=== PATIENT | male | born 1960 | race Caucasian/White ===

== ENCOUNTER 2023-12-08 16:57 | Emergency (ER) | payer BC, SELFPAY ==
[2023-12-08 17:04] VITALS: BP 158/105
[2023-12-08 17:29] VITALS: BP 145/92
[2023-12-08 17:36] VITALS: BMI 28.4
[2023-12-08 18:00] VITALS: BP 137/94
[2023-12-08 18:06] LABS: % Basophils 0.5 % (0-2); % Eosinophils 6.6 % (0-6); % Immature Granulocytes 0.2 % (0-0.5); % Lymphocytes 32.4 % (20.5-51.1); % Neutrophils 52.3 % (42.2-75.2); Absolute Eosinophils 0.4 10^3/uL (0-0.7); Absolute Lymphocytes 2.2 10^3/uL (1.2-3.4); Absolute Monocytes 0.5 10^3/uL (0.1-0.6); Absolute Neutrophils 3.5 10^3/uL (1.4-6.5); Hemoglobin 14.4 g/dL (13.0-18.0); Mean Corp Hgb Conc. 35.1 g/dL (33.0-37.0); Mean Corpuscular Hgb 31.2 pg (27.0-31.0); Mean Corpuscular Volume 88.9 fL (80.0-94.0); Mean Platelet Volume 9.1 fL (7.4-10.4); Nucleated Red Blood Cells % 0 % (-); Platelet Count 199 10^3/uL (130-400); Red Blood Cell Count 4.61 10^6/uL (4.70-6.10); Red Cell Dist. Width 12.4 % (11.5-14.5); White Blood Cell Count 6.6 10^3/uL (4.8-10.8)
--- NOTE | 2023-12-08 18:14 | ED.GENMED ---
History of Present Illness
General
Chief Complaint: Breathing Problem
Time Seen by Provider: 12/08/23 18:01
Travel History
Have you had any contact with someone who has COVID-19?: No
Do you have any symptoms of coronavirus? Fever > 100 degrees, chills, cough, shortness of breath, sore throat, loss of taste or smell, muscle aches, or headache?: No
History of Present Illness
History of Present Illness:
63-year-old male with no significant past medical history presents to the emergency department for evaluation of persistent cough, wheezing, and shortness of breath over the past 4 to 5 weeks. Has been treated with multiple courses of antibiotics,
oral steroids and inhaled steroids with marginal benefit. He states that while on oral steroids he did seem to improve for a brief period of time before worsening again. Denies any URI symptoms, fever, chills, or night sweats. Denies any weight
loss or chest pain. No leg swelling or calf cramping. Non-smoker. 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
Past History
Past History
ED Past Medical History: None
ED Past Surgical History: None
Social History
Tobacco: Non-smoker
Review of Systems
Review of Systems
Allergies reviewed?: Yes
All Other Systems: ROS reviewed and negative except as documented in HPI and ROS
Phy Exam
Physical Exam
Physical Exam:
GEN: Well appearing, NAD, WDWN
Eyes: PERRLA, EOMs intact, no scleral icterus
HENT: NCAT, oral mucosa moist, no JVD
Lungs: Slightly tachypneic with no accessory muscle use, coarse wheezes heard throughout all lung frost with prolonged aspiratory phase
Cardiac: RRR, no M/R/G, no peripheral edema. Radial pulses 2+ bilat
Neuro: AO x 3, no focal deficits to BUE/BLE, normal sensation throughout
MSK: No gross deformity or ecchymosis.
Skin: No rashes, petechiae. Normal color, no pallor or jaundice.
Psych: Calm, cooperative, proper hygiene
Scores
Heart Failure Risk
Heart Failure Risk Score: Not Applicable
Course
Orders/Labs/Results
Orders:
Orders
12/08/23 17:09
Chest [CR Chest - 2 Views ] Urgent
Comment:
Reason For Exam: cough
12/08/23 17:58
Complete Blood Count/With Diff Urgent
Comprehensive Metabolic Panel Urgent
Pro-BNP [NT-proBNP] Urgent
Troponin I Urgent
12/08/23 18:40
CT Chest W/o Iv Contrast Urgent
Comment:
Reason For Exam: SOB/wheezing x 1 month, prior asbestos exposure
Ipratropium/Albuterol Sulfate [Duoneb] 3 ml INH R NOW STA
12/08/23 19:28
Prednisone [Deltasone] 60 mg PO NOW STA
Abnormal Lab Results
12/08/23
17:58
RBC 4.61 L 10^6/uL
(4.70-6.10)
MCH 31.2 H pg
(27.0-31.0)
Eosinophils % 6.6 H %
(0-6)
BUN 26 H mg/dl
(9-20)
Glucose 111 H mg/dl
(70-99)
AST 81 H U/L
(17-59)
12/08/23 17:58
12/08/23 17:58
Vital Signs
Initial and Last Documented VS:
Initial Vital Signs
Temp Pulse Resp BP Pulse Ox
97.9 F 94 20 158/105 94
12/08/23 17:04 12/08/23 17:04 12/08/23 17:04 12/08/23 17:04 12/08/23 17:04
Last Documented Vital Signs
Temp Pulse Resp BP Pulse Ox
97.9 F 75 21 137/94 92
12/08/23 17:04 12/08/23 18:45 12/08/23 18:45 12/08/23 18:00 12/08/23 18:45
MDM/Problems Addressed
MDM/Problems Addressed:
Patient has had prolonged symptoms for more than a month with some transient improvement on steroids. His presentation is not consistent with infectious etiology such as pneumonia particular given reassuring imaging. He has no chest pain given the
presence of wheezing I have a low suspicion for pulmonary embolism. CT scan has some suggestion of pneumonitis which could be inflammatory versus occupational exposure. Will start the patient on a prolonged course of steroids and recommend
outpatient pulmonology follow-up. He is clinically stable and does not require hospitalization at this point
*Critical Care Note
Total Time (30-74mins, 75-104mins- exclusive of procedures): Not Applicable
ED Attending Note
-
Portions of this chart may have been created with voice recognition software.� Occasional wrong word or��sound alike� substitutions may have occurred due to the inherent limitations of voice recognition software.
Discharge Plan
Departure
Patient Disposition: Home (Routine Discharge)
Date of Disposition: 12/08/23
Time of Disposition: 19:28
Patient with high blood pressure during this ER visit?: Yes
Discharge Problem:
Pneumonitis
Instructions: Pneumonitis (DC)
Prescriptions:
New
prednisone 10 mg tablet
10 mg PO DIRECTED Qty: 37 0RF
Rx Instructions:
Once daily as follows: 60, 50, 50, 40, 40, 30, 30, 20, 20, 10, 10, 5, 5
No Action
ascorbic acid (vitamin C) [Vitamin C] 1,000 MG tablet
1,000 mg PO DAILY
ginseng [Gin-Zing] 100 MG capsule
100 mg PO DAILY
ibuprofen [Advil Liqui-Gel] 200 MG capsule
400 mg PO Q6H PRN (Reason: lower back pain)
docosahexaenoic acid-epa 1 CAP capsule
1 cap PO DAILY
vitamin E (dl, acetate) 400 UNITS capsule
400 units PO DAILY
Multivitamin
1 tab PO DAILY
Referrals:
Max Fairchild MD [Active] -
Fam Clay MD [Family Provider] -
Interventions
Interventions:
*Risk Screen - Suicide Last Done: 12/08/23 17:36
*General Assessment Last Done: 12/08/23 17:36
*Neglect/Abuse Screening Last Done: 12/08/23 17:36
ED- Fall Risk Assessment Last Done: 12/08/23 17:36
*ED COVID-19 Vaccine History Last Done: 12/08/23 17:36
*Nursing Disposition Last Done: 12/08/23 19:50
ED- Cardiac Assessment Last Done: 12/08/23 17:36
ED- Pulmonary Assessment Last Done: 12/08/23 17:36
Discharge Date and Time
Discharge Date/Time: 12/08/23 19:51
[2023-12-08 18:18] LABS: ALT (SGPT) 25 U/L (0-50); AST (SGOT) 81 U/L (17-59); Albumin 4.1 g/dl (3.5-5.0); Alkaline Phosphatase 110 U/L (38-126); Blood Urea Nitrogen 26 mg/dl (9-20); Calcium 9.6 mg/dl (8.4-10.2); Carbon Dioxide 22 mmol/L (22-30); Chloride 103 mmol/L (98-107); Estimated Creatinine Clearance 77 ml/min; Glucose 111 mg/dl (70-99); Potassium 4.2 mmol/L (3.5-5.1); Sodium 138 mmol/L (135-145); Total Bilirubin 0.6 mg/dl (0.2-1.3); eGFR > 60.00
[2023-12-08 18:29] LABS: NT-proBNP 85.7 pg/ml; Troponin I < 0.012 ng/ml
[2023-12-08] MEDS: DUONEB 3 ML INH (18:46)
[2023-12-08] MEDS: DELTASONE 60 MG PO (19:38)
== END 2023-12-08 19:51 | disposition home or self-care (01) ==
LOC: EMR 16:57
PROVIDERS: EMERGENCY PHYSICIAN Emergency Medicine; FAMILY PHYSICIAN Family Medicine
DX: J18.9 Pneumonia, unspecified organism (principal); R03.0 Elevated blood-pressure reading, without diagnosis of hypertension
CPT/HCPCS: 99285; 94640; 71046; 71250; 80053; 83880; 84484; 85025; 93005

== ENCOUNTER → 2024-01-17 12:21 | Outpatient (REF) | payer BC, SELFPAY | LOC: HWRAD 12:21 | PROVIDERS: ATTENDING PHYSICIAN Internal Medicine Critical Care Medicine; FAMILY PHYSICIAN Family Medicine | DX: R06.00 Dyspnea, unspecified (principal); R91.1 Solitary pulmonary nodule; R91.8 Other nonspecific abnormal finding of lung field | CPT/HCPCS: 71250 ==

== ENCOUNTER → 2024-05-06 14:30 | Outpatient (REF) | payer BC, SELFPAY | LOC: RCS 14:30 | PROVIDERS: ATTENDING PHYSICIAN Pain Medicine Interventional Pain Medicine; FAMILY PHYSICIAN Family Medicine | DX: Z01.818 Encounter for other preprocedural examination (principal) | CPT/HCPCS: 93005 ==

== ENCOUNTER 2024-06-06 02:20 | Inpatient (IN) | payer BC, SELFPAY ==
[2024-06-05 18:01] VITALS: BP 138/97
[2024-06-05 18:33] LABS: ALT (SGPT) 21 U/L (0-50); AST (SGOT) 77 U/L (17-59); Albumin 4.3 g/dl (3.5-5.0); Alkaline Phosphatase 108 U/L (38-126); Blood Urea Nitrogen 15 mg/dl (9-20); Calcium 9.5 mg/dl (8.4-10.2); Carbon Dioxide 22 mmol/L (22-30); Chloride 100 mmol/L (98-107); Glucose 105 mg/dl (70-99); Potassium 4.5 mmol/L (3.5-5.1); Sodium 133 mmol/L (135-145); Total Bilirubin 0.6 mg/dl (0.2-1.3); Total Protein 7.8 g/dl (6.3-8.2); eGFR > 60.00
[2024-06-05 18:34] LABS: COVID-19 Antigen Negative (Negative)
[2024-06-05 18:36] VITALS: BP 133/86
[2024-06-05 18:36] LABS: Hematocrit 40.6 % (39.0-52.0); Hemoglobin 14.5 g/dL (13.0-18.0); Mean Corp Hgb Conc. 35.7 g/dL (33.0-37.0); Mean Corpuscular Hgb 31.4 pg (27.0-31.0); Mean Corpuscular Volume 87.9 fL (80.0-94.0); Mean Platelet Volume 9.7 fL (7.4-10.4); Platelet Count 206 10^3/uL (130-400); Red Blood Cell Count 4.62 10^6/uL (4.70-6.10); Red Cell Dist. Width 12.8 % (11.5-14.5); White Blood Cell Count 6.2 10^3/uL (4.8-10.8)
[2024-06-05 18:42] VITALS: BMI 26.5
--- NOTE | 2024-06-05 18:45 | EDRN ---
Received patient on stretcher. Patient stated that he had COVID 2 weeks ago and 3 days ago developed a fever with nausea and diarrhea. Saw his PCP yesterday and was given a prescription for Zofran. Patient stated that he has been taking extra
strength Tylenol every 6 hours that usually lasts about 4 hours. Took Zofran around 3pm. Stated that it helped so he could take the Tylenol. Decreased appetite.
[2024-06-05 19:00] VITALS: BP 146/99
--- NOTE | 2024-06-05 19:05 | ED.GENMED ---
History of Present Illness
General
Chief Complaint: Fever
Source: patient and spouse
Exam Limitations: none
Time Seen by Provider: 06/05/24 18:30
History of Present Illness
History of Present Illness:
This is a 64 year old male that comes in with c/o fever and body aches. States that he started on Sunday with fever and body aches. States that he has had nausea and diarrhea with a headache. States that he went to the PCP yesterday and at the
doctors office his temp was 103.4. Patient also vomited 3 times while there. States that he was given Zofran and is taking Tylenol 2 tabs every 6 hours. States that he has no appetite. States that his headache is across his forehead and that he has
had chills with his fever. States that he has used Imodium to help with the diarrhea. Denies any chest pain, SOB, abd pain, dizziness, urinary burning.
Past History
Past History
ED Past Medical History: COPD (questionable since COVID) and HTN
ED Past Surgical History: None, Orthopedic (Bilateral rotator cuff, right elbow surgery , Laminectomy, Neck surgery nerves cut) and Other (Inguinal hernia, )
Social History
Tobacco: Former smoker
Alcohol: Occasional
Personal:
Living: with family
Review of Systems
Review of Systems
All Other Systems: ROS reviewed and negative except as documented in HPI and ROS
Constitutional: Reports fever and chills
EENT: Reports no symptoms; Denies sore throat
Respiratory: Reports no symptoms; Denies cough or trouble breathing
Cardiac: Reports no symptoms; Denies chest pain
ABD/GI: Reports abdominal pain (sore), nausea, vomiting and diarrhea
: Reports no symptoms; Denies dysuria, frequency or urgency
Musculoskeletal: Reports other (Body aches)
Skin: Reports no symptoms
Neurological: Reports headache; Denies dizzy
Psychiatric: Reports no symptoms
Phy Exam
General Physical Exam
General Presentation: no apparent distress
General age: appears stated age
General Skin: warm and dry
General Habitus: normal
General Mental: alert
General Hydration: dry mucous membranes
ENT Exam
ENT Exam: TM's normal, pharynx normal and neck supple
Eye Exam
Eye Exam: EOMI
Cardiovascular Exam
Cardiovascular Exam: regular rate/rhythm, no edema, no murmur and normal peripheral pulses
Pulmonary Exam
Pulmonary Exam: no respiratory distress, chest non tender, no rhonchi, no wheezing, no cough and other (crackles right base)
Gastrointestinal Exam
Gastrointestinal Exam: normal bowel sounds, soft, no organomegaly, no pulsatile mass, non distended and tender (Generalized tenderness with palpation)
Musculoskeletal Exam
Musculoskeletal Exam: full ROM and no edema
Skin Exam
Skin Exam: normal color, warm/dry, no rash and no petechia
Psychiatric Exam
Psychiatric Exam: normal mood/affect
Course
Orders/Labs/Results
Orders:
Orders
06/05/24 18:12
CMP [Comprehensive Metabolic Panel] Urgent
COVID-19 Antigen Urgent
Source: Nasal Swab
Complete Blood Count/With Diff Urgent
INF RAPID [Influenza A+B Rapid Molecular] Urgent
FARZANEH Source: Nasal Swab
Specimen Description:
06/05/24 18:48
0.9% Sodium Chloride 1000 ml [Nss] 1,000 ml IV BOLUS
Ketorolac [Toradol] 30 mg IV NOW STA
CR Chest - 2 Views Urgent
Comment:
Reason For Exam: fever
06/05/24 19:17
Lactic Acid Urgent
06/05/24 21:18
CT Abd/pelvis W Iv Cont Urgent
Comment:
Reason For Exam: abd pain, fever
Diphenhydramine [Benadryl] 25 mg IV NOW STA
Prochlorperazine [Compazine] 5 mg IV NOW STA
06/05/24 21:45
Acetaminophen [Tylenol] 1,000 mg PO NOW STA
06/05/24 23:55
Urinalysis Reflex To Culture Urgent
Date Specimen was Collected: 06/05/24
Time Specimen was Collected: 23:52
Abnormal Lab Results
06/05/24 06/05/24
18:12 23:55
RBC 4.62 L 10^6/uL
(4.70-6.10)
MCH 31.4 H pg
(27.0-31.0)
Absolute Lymphs (auto) 0.9 L 10^3/uL
(1.2-3.4)
Lymphocytes % 15.2 L %
(20.5-51.1)
Sodium 133 L mmol/L
(135-145)
Glucose 105 H mg/dl
(70-99)
AST 77 H U/L
(17-59)
Urine Ketones 3+ A
(Negative)
Urine Bilirubin 1+ A
(Negative)
06/05/24 18:12
06/05/24 18:12
Sodium slightly low. Glucose nonfasting. AST elevation. COVID and Influenza Negative. Urine negative for infection.
Vital Signs
Initial and Last Documented VS:
Initial Vital Signs
Temp Pulse Resp BP Pulse Ox
98.8 F 121 16 138/97 95
06/05/24 18:01 06/05/24 18:01 06/05/24 18:01 06/05/24 18:01 06/05/24 18:01
Last Documented Vital Signs
Temp Pulse Resp BP Pulse Ox
99.8 F 94 20 147/98 96
06/05/24 21:45 06/05/24 20:00 06/05/24 20:00 06/05/24 21:11 06/05/24 21:15
MDM/Problems Addressed
Differential Diagnosis Includes:
PNA, Viral syndrome
MDM/Problems Addressed:
This is a 64 year old male that comes in with c/o fever, vomiting and diarrhea. States that this started on Sunday and he was seen by the PCP yesterday. Told that this is most likely viral. Patient was given Zofran and told to take Tylenol every 6
hours.
will check labs and get Chest x-ray
back into see patient. Explained that there could be a small right lower lobe Pneumonia. When listening to patient lungs there is crackling noted. Patient states that nothing he has been given has helped. States that he feels 'like Crap'. Explained
that this could all be viral. Will get CT for his abd discomfort. Will further medicate for his nausea.
Into see patient. Explained that the CT shows that he has Ileitis. This is most likely infectious as noted by patient fever and nausea. Will start on IV antibiotics and admit. Hospitalist notified.
Chronic conditions affecting care:
NA
Acute Exacerbation and/or Progression of Chronic Illness:
NA
*Radiology
Radiology exam reviewed: preliminary read by ED provider (Chest- questionable right lower lobe Pneumonia (CT r/o Pneumonia, Atelectasis)), radiology read reviewed (CT night hawk-Mild segmental thickening of the disstal and terminal ileum with mild
associated mesenteric edema and trace free intraperitoneal fluid. Distal ileum is dilated, measuring up to 3.3cm in diameter. Luminal fluid in the right colon. Findings would suggest ileitis with segmental adynamic), all reviewed NAD by ED Provider
( CT cont-ileus. (no clear signs of mechanical obstruction), Infection and/or inflammatory disease are primary considerations. Ischemia considered less likely. Suspect secondary dilation of the appendix which measures 8-9mm and is fluid-filled. No
periappendiceal inflammatory changes at this time.) and other (CT cont- Suggest follow-up as clnically warranted. Small fat-containing periumbilical hernia. Atherosclerotic calcifications abdominal aorta and iliac vessels. Degenerative changes in
the spine, pelvis and hips. Previous Left L5 laminectomy)
*Pulse Oximetry
Patient hypoxic: no
*EKG
Interpreted by ED Provider?: NA
Rate: EKG- N/A
*International Accountant Interpretation
Rate: tachycardiac
Heart Rate: 111
Rhythm: sinus tachycardia
*Critical Care Note
Total Time (30-74mins, 75-104mins- exclusive of procedures): Not Applicable
ED Attending Note
-
Portions of this chart may have been created with voice recognition software.� Occasional wrong word or��sound alike� substitutions may have occurred due to the inherent limitations of voice recognition software.
Discharge Plan
Departure
Patient Disposition: Admit
Date of Disposition: 06/06/24
Time of Disposition: 00:26
Admit to: Med/Surg
Presentation/result/management discussed w/ accepting MD/DO: Hospitalist
Patient with high blood pressure during this ER visit?: Yes
Condition: Good
Covid-19: Negative COVID-19
Discharge Problem:
Fever, Ileitis
Prescriptions:
No Action
ascorbic acid (vitamin C) [Vitamin C] 1,000 MG tablet
1,000 mg PO DAILY
ginseng [Gin-Zing] 100 MG capsule
100 mg PO DAILY
ibuprofen [Advil Liqui-Gel] 200 MG capsule
400 mg PO Q6H PRN (Reason: lower back pain)
docosahexaenoic acid-epa 1 CAP capsule
1 cap PO DAILY
vitamin E (dl, acetate) 400 UNITS capsule
400 units PO DAILY
Multivitamin
1 tab PO DAILY
prednisone 10 mg tablet
10 mg PO DIRECTED Qty: 37 0RF
Rx Instructions:
Once daily as follows: 60, 50, 50, 40, 40, 30, 30, 20, 20, 10, 10, 5, 5
Referrals:
NONE,* [Active] -
Interventions
Interventions:
*Risk Screen - Suicide Last Done: 06/05/24 18:42
*General Assessment Last Done: 06/05/24 18:42
*Neglect/Abuse Screening Last Done: 06/05/24 18:42
ED- Fall Risk Assessment Last Done: 06/05/24 18:42
*ED COVID-19 Vaccine History Last Done: 06/05/24 18:42
ED- Neurological Assessment Last Done: 06/05/24 18:42
ED-Skin Assessment Last Done: 06/05/24 18:42
Discharge Date and Time
Print Language: OCCITAN
[2024-06-05] MEDS: TORADOL 30 MG IV (19:13)
[2024-06-05] MEDS: NSS 1000 IV (19:16)
[2024-06-05 19:17] LABS: % Basophils 0.5 % (0-2); % Eosinophils 0.2 % (0-6); % Immature Granulocytes 0.2 % (0-0.5); % Lymphocytes 15.2 % (20.5-51.1); % Monocytes 9.2 % (1.7-9.3); % Neutrophils 74.7 % (42.2-75.2); Absolute Lymphocytes 0.9 10^3/uL (1.2-3.4); Absolute Monocytes 0.6 10^3/uL (0.1-0.6); Absolute Neutrophils 4.6 10^3/uL (1.4-6.5); Nucleated Red Blood Cells % 0.3 % (-)
[2024-06-05 19:39] LABS: Lactic Acid 0.7 mmol/L (0.7-2.0)
[2024-06-05 20:00] VITALS: BP 141/86
[2024-06-05 21:11] VITALS: BP 147/98
[2024-06-05] MEDS: BENADRYL 25 MG IV (21:31)
[2024-06-05] MEDS: COMPAZINE 5 MG IV (21:32)
[2024-06-05] MEDS: TYLENOL 1000 MG PO (21:49)
[2024-06-06] VITALS (9 sets, daily range): BP systolic 139–157; BP diastolic 85–98; BMI 27.1
[2024-06-06 00:01] LABS: Urine Albumin Trace (Neg - Trace); Urine Bilirubin 1+ (Negative); Urine Character Clear (Clear); Urine Color Yellow; Urine Glucose Negative (Negative); Urine Ketone 3+ (Negative); Urine Leukocyte Negative (Negative); Urine Nitrite Negative (Negative); Urine Occult Blood Negative (Negative); Urine Specific Gravity 1.015 (<1.030); Urine Urobilinogen 1+ (Neg - 1+)
[2024-06-06] MEDS: ZOSYN 50 IV ×3 (00:36→11:08)
--- NOTE | 2024-06-06 01:37 | HPS.HSE ---
Family Physician
-
Family Physician: Fam Clay
Chief Complaint
-
hi grade fever
History of Present Illness
HPI
64M HX COPD ( questionable since COVID) and HTN seen at ER for evalaution of Fever
- Hi grade fever 103.4 at PCP office. Afebrile at ER
- Chills with fever
- Associated w frontal COTE and arthralgia
- Nausea and NB watery diarrhea
- Poor appetite
- No recent travel
- No recent ABx
- No contact exposures
ROS:
Denies any chest pain, SOB, abd pain, dizziness, urinary burning.
Medical History
Past Medical History
Past Medical History: Reports Other
Additional Past Medical History:
COPD (questionable since COVID) and HTN
Past Surgical History: Reports Other
Additional Past Surgical History:
Bilateral rotator cuff, right elbow surgery , Laminectomy, Neck surgery nerves cut) and Other (Inguinal hernia, )
Social History
Tobacco: Former Smoker
Alcohol: Occasional
Personal:
Living: With Family
Family History
Family History: Not pertinent
Allergies / Home Medications
Allergies reflects when Allergies were last updated in [facility].
Home Medications with original date entered in [facility]
Allergy/Medication List:
Allergies
Allergy/AdvReac Type Severity Reaction Status Date / Time
No Known Drug Allergies Allergy - Verified 12/08/23 17:03
cats Allergy stuffy Uncoded 12/08/23 17:03
nose and
watery eyes
hayfever, dust, pollen Allergy stuffy Uncoded 12/08/23 17:03
nose and
watery eyes
Home Medications
Multivitamin 1 tab PO DAILY 11/24/13
ascorbic acid (vitamin C) 1,000 mg tablet (Vitamin C) 1,000 mg PO DAILY 11/24/13
docosahexaenoic acid (dha)-epa 120 mg-180 mg capsule 1 cap PO DAILY 11/24/13
ginseng 100 mg capsule (Gin-Zing) 100 mg PO DAILY 11/24/13
ibuprofen 200 mg capsule (Advil Liqui-Gel) 400 mg PO Q6H PRN lower back pain 11/24/13
vitamin E (dl, acetate) 180 mg (400 unit) capsule 400 units PO DAILY 11/24/13
prednisone 10 mg tablet 10 mg PO DIRECTED #37 tabs 12/08/23
Review of Systems
-
Constitutional: Reports Fever and Chills
EENT: Reports No Symptoms
Respiratory: Reports No Symptoms
Cardiac: Reports No Symptoms
Abdomen/GI: Reports Nausea and Diarrhea
: Reports No Symptoms
Musculoskeletal: Reports No Symptoms
Skin: Reports No Symptoms
Neurological: Reports No Symptoms
Endocrine: Reports No Symptoms
Hematologic/Lymphatic: Reports No Symptoms
Psych: Reports No Symptoms
Physical Exam
Vital Signs
Vital Signs
Temp Pulse Resp BP Pulse Ox
98.7 F 97 24 148/96 96
06/06/24 00:05 06/06/24 01:15 06/06/24 01:15 06/06/24 01:00 06/06/24 01:15
Physical Exam
General: Well Developed, Well Nourished and No Apparent Distress
HEENT: NormoCephalic, Moist mucous membranes and Atraumatic
Respiratory: Clear
Cardiac: S1/S2 and Regular Rhythm; No Murmur or Rub
GI: Soft, Non Tender, Non Distended and Normal Bowel Sounds; No Organomegaly
Rectal: Deferred by Provider
Musculoskeletal: No Clubbing, No Cyanosis and No Edema
Skin: No Rash
Neuro: Nonfocal/grossly intact
Laboratory Results
-
06/05/24 18:12
06/05/24 18:12
Laboratory Results
Lactic Acid 0.7 mmol/L (0.7-2.0) 06/05/24 19:17
Total Bilirubin 0.6 mg/dl (0.2-1.3) 06/05/24 18:12
AST 77 U/L (17-59) H 06/05/24 18:12
ALT 21 U/L (0-50) 06/05/24 18:12
Alkaline Phosphatase 108 U/L (38-126) 06/05/24 18:12
Data Reviewed
-
Diagnostic Radiology: Report Reviewed by me
CT Scan: Report Reviewed by me
Medical Tests (Nuc Med, Echo, EKG etc): Report Reviewed by me
Lab Data: Labs Reviewed by me
Impression/Plan
-
Reviewed VS: Afebrile, unremarkable HR hi 90s, normotensive, RR low 20s,
Data
WCC 6.2
Na 133
Cr 1.2
eGFR > 60
AST 77
NEG Covid
CXR
Small focus of linear atelectasis within the lateral left lower lung.
CT AP with contrast
- findings suggest ileitis with segmental adynamic illeus Infective vs inflammatory
- no clear mechanical obstruction
- secondary dilation of appendix
No prior hospitalist admission:
ASSESSMENT & PLAN
Pending Rx reconciliation
Sepsis associated with acute ileitis suspect infective > Inflammatory
Associated segmental ileus
Associated NB watery diarrhea
- No recent travel
- No recent ABx
- No contact exposures
- stool Cx, stool C Diff
- Clear and IVF
- empiric Zosyn
- anti emetics
- Held NSAIDs
- GI consult
Borderline Essential HTN
- Pending Rx reconciliation ? on losartan
DVT Px: SCD
Code: Full
IP TLM
[2024-06-06] MEDS: NSS 1000 IV ×2 (03:33→14:48)
[2024-06-06] MEDS: TYLENOL 650 MG PO ×4 (03:37→19:52)
--- NOTE | 2024-06-06 03:41 | PTCARENOTE ---
Pt received from ED at 0327. Pt walked into room. Pt AAOX3, able to make needs known, and VSS. Will continue with current plan of care.
[2024-06-06 09:24] LABS: Hematocrit 36.3 % (39.0-52.0); Hemoglobin 12.7 g/dL (13.0-18.0); Mean Corpuscular Hgb 31.1 pg (27.0-31.0); Mean Corpuscular Volume 88.8 fL (80.0-94.0); Mean Platelet Volume 9.7 fL (7.4-10.4); Platelet Count 165 10^3/uL (130-400); Red Blood Cell Count 4.09 10^6/uL (4.70-6.10); Red Cell Dist. Width 12.7 % (11.5-14.5); White Blood Cell Count 3.9 10^3/uL (4.8-10.8)
[2024-06-06 09:59] LABS: ALT (SGPT) 19 U/L (0-50); AST (SGOT) 76 U/L (17-59); Albumin 3.8 g/dl (3.5-5.0); Alkaline Phosphatase 85 U/L (38-126); Blood Urea Nitrogen 16 mg/dl (9-20); Carbon Dioxide 21 mmol/L (22-30); Chloride 100 mmol/L (98-107); Estimated Creatinine Clearance 69 ml/min; Glucose 83 mg/dl (70-99); Potassium 4.3 mmol/L (3.5-5.1); Sodium 134 mmol/L (135-145); Total Bilirubin 0.6 mg/dl (0.2-1.3); eGFR > 60.00
--- NOTE | 2024-06-06 10:07 | W.PN.HOSP.TC ---
Today's Communication/Plan
-
see outlined plan
Assessment / Plan
Assessment / Plan
Assessment:
Ileitis
- CT: Mild thickening of several distal small bowel loops including the terminal ileum with mild to moderate fluid distention of the distal small bowel as well as the proximal colon. Mild mesenteric stranding also noted. Findings suggestive of a
non-specific enteritis, likely infectious or inflammatory in nature. The appendix is also secondarily filled with fluid measuring 11 mm. No periappendiceal inflammatory changes.
- patient admits to eating raw oysters
- will check stool studies, norovirus, O&P, and Vibrio if lab available
- continue empiric Zosyn pending cultures
- clears
- pain control, anti-emetics
- GI Consulted
Hyponatremia - improving
hx of Essential HTN
- resume Valsartan, 40mg dose until home dose clarified
Hx of Asthma
- on Breo
DVT ppx: SCDs
Code: Full
Non-billable note, H&P entered same calendar date)
Anticipated Discharge: 24 - 48 hours
Subjective/Interval History
-
Date of Service: June 06, 2024
reports some chills, had a loose stool this AM
admits to eating raw oysters a few days ago
Objective Data
-
Labs:
Laboratory Results
06/06/24
09:01
WBC 3.9 L
Hgb 12.7 L
Hct 36.3 L
Plt Count 165
Sodium 134 L
Potassium 4.3
Chloride 100
Carbon Dioxide 21 L
BUN 16
Creatinine 1.1
Glucose 83
Calcium 9.0
Total Bilirubin 0.6
AST 76 H
ALT 19
Alkaline Phosphatase 85
Vital Signs:
Vital Signs
Temp Pulse Resp BP Pulse Ox
98 F 97 16 139/91 93
06/06/24 07:30 06/06/24 07:30 06/06/24 07:30 06/06/24 07:30 06/06/24 07:30
I&O
06/05/24 06/06/24 06/07/24
06:59 06:59 06:59
Intake Total 290 / 290
Balance 290 / 290
Physical Exam
-
General: No Apparent Distress
HEENT: Normocephalic and Atraumatic
Respiratory: Negative Wheezes
Cardiac: Regular Rhythm and S1/S2
GI: Nontender and Distended
Genito-urinary: No Costovertebral Tender
Musculoskeletal: No Edema
Neuro: AO x 3
Psych: Calm
Data Reviewed
-
Total Time Spent with Patient (in minutes): 42
Labs: Labs Reviewed by me
[2024-06-06] MEDS: SYMBICORT 160/4.5 MCG INHALER INH (10:40)
[2024-06-06] MEDS: DIOVAN 40 MG PO (11:08)
--- NOTE | 2024-06-06 11:16 | CON.GI ---
Addendum entered and electronically signed by Martina Poe MD 06/06/24 16:20:
I saw and examined the patient.
The METAL FURNITURE ASSEMBLY SUPERVISOR's note was reviewed and I agree with the note.
Nausea/vomiting/diarrhea/fever--CT imaging showing enteritis. Likely infectious gastroenteritis vs food poisoning.
History of collagenous colitis-asymptomatic in the past. Last colonoscopy 2021-details below
plan
Follow-up stool studies for infection
Adequate hydration
Continue antibiotics started by medical team
Will follow
Original Note:
Consultation
-
Date/Time Consultation Requested: 06/06/24 0308
Date/Time Consultation Performed: 06/06/24 1050
Requesting Provider: Dr. Ngo
Performing Provider: Dr. Poe/DEYANIRA Barragan
Reason for Consultation: ileitis
Medical History
Chief Complaint / HPI
Chief Complaint: F,C,N/V,D
History of Present Illness:
64-year-old male with past medical history of hypertension, questionable COPD after having COVID and collagenous colitis currently quiescent who presents to the emergency room with 4-day history of fevers, chills, myalgias, nausea, vomiting and
diarrhea. We are asked to evaluate for ileitis. The patient states that on Sunday evening he went out with family to [employer] [place] he had raw oysters. He states he only ate 2 of them. Other family members had oysters as well. No
other family members are sick. He states that on Sunday he had acute on onset of generalized feeling unwell. He states he felt somewhat feverish with some mild aches. As the day progressed this got significantly worse. By that evening he states
he could not get comfortable. He was moaning out with discomfort, aches and pains, he does know that he had fevers and chills although did not take his temperature. By Sunday he started having profuse brown diarrhea with associated nausea and
vomiting. He went to his PCP and also vomited while there. His temperature was 103.4. He was given a prescription of Zofran and told that he should probably go to the emergency room. The patient decided to try to stay home. However things got
worse and he did not feel better. The patient was taking Tylenol 2 tablets every 6 hours. He had generalized headache. He tried to use Imodium without any relief. The patient denies any melena, hematochezia, dysphagia or odynophagia. He denies
any chest pain or shortness of breath. He denies any sore throat, no lesions. The patient denies any recent travel. No sick contacts. Patient continues to have loose stools here although he states these are getting somewhat thicker. He has had
no further vomiting. He is tolerating some sips of clears.
Past Medical History
Past Medical History: COPD, HTN and Other (Collagenous colitis)
Past Surgical History: Orthopedic (Bilateral rotator cuff, right elbow surgery, laminectomy, neck surgery) and Other (Inguinal hernia repair)
Social History
Tobacco: Non-Smoker
Alcohol: Occasional ('2-3 cocktails a week')
Drug: None
Personal:
Living: With Family
Employment: Employed
Family History
Family History: Other (No family history of gastrointestinal malignancy or IBD)
Allergies / Home Medications
Allergy/AdvReac Type Severity Reaction Status Date / Time
No Known Drug Allergies Allergy - Verified 12/08/23 17:03
cats Allergy stuffy Uncoded 12/08/23 17:03
nose and
watery eyes
hayfever, dust, pollen Allergy stuffy Uncoded 12/08/23 17:03
nose and
watery eyes
�Medication �Instructions �Recorded
Multivitamin 1 tab PO DAILY 11/24/13
ibuprofen 200 mg capsule (Advil 400 mg PO Q6H PRN lower back pain 11/24/13
Liqui-Gel)
aspirin 81 mg tablet 81 mg PO DAILY 06/06/24
fluticasone furoate 200 1 ea inhalation DAILY 06/06/24
mcg-vilanterol 25 mcg/dose
inhalation powder (Breo Ellipta)
valsartan PO DAILY 06/06/24
Review of Systems
-
All other systems: A 12 pt ROS was Negative except as stated above in HPI
Vital Signs
Temp Pulse Resp BP Pulse Ox
98 F 97 16 139/91 93
06/06/24 07:30 06/06/24 11:08 06/06/24 07:30 06/06/24 11:08 06/06/24 07:30
Physical Exam
Exam
General: Other (Patient appears unwell)
HEENT: Anicteric
Respiratory: Clear (Anterior)
Cardiac: Regular Rhythm (Tachycardic, 109)
GI: Soft, Non Tender, Normal Bowel Sounds and Distended (Mildly distended)
Musculoskeletal: No Edema
Skin: Warm and Dry
Neuro: AO x 3
Psych: Calm
Results
WBC 3.9 10^3/uL (4.8-10.8) L 06/06/24 09:01
Hgb 12.7 g/dL (13.0-18.0) L 06/06/24 09:01
Hct 36.3 % (39.0-52.0) L 06/06/24 09:01
MCV 88.8 fL (80.0-94.0) 06/06/24 09:01
Plt Count 165 10^3/uL (130-400) 06/06/24 09:01
Absolute Neuts (auto) 4.6 10^3/uL (1.4-6.5) 06/05/24 18:12
Sodium 134 mmol/L (135-145) L 06/06/24 09:01
Potassium 4.3 mmol/L (3.5-5.1) 06/06/24 09:01
Chloride 100 mmol/L (98-107) 06/06/24 09:01
Carbon Dioxide 21 mmol/L (22-30) L 06/06/24 09:
BUN 16 mg/dl (9-20) 06/06/24 09:
Creatinine 1.1 mg/dL (0.7-1.3) 06/06/24 09:
Calcium 9.0 mg/dl (8.4-10.2) 06/06/24 09:
Total Bilirubin 0.6 mg/dl (0.2-1.3) 06/06/24 09:
AST 76 U/L (17-59) H 06/06/24 09:
ALT 19 U/L (0-50) 06/06/24 09:
Alkaline Phosphatase 85 U/L (38-126) 06/06/24 09:
Diagnostic Image Results:
CT abdomen and pelvis with IV contrast:
IMPRESSION:
1. Mild thickening of several distal small bowel loops including the terminal ileum with mild to moderate fluid distention of the distal small bowel as well as the proximal colon. Mild mesenteric stranding also noted. Findings suggestive of a
non-specific enteritis, likely infectious or inflammatory in nature. The appendix is also secondarily filled with fluid measuring 11 mm. No periappendiceal inflammatory changes.
2. Additional findings above.
A preliminary interpretation was provided by [facility] teleradiology service. The above report agrees with the initial interpretation.
Electronically signed by Rick Baker MD, 06/06/2024 8:55 AM
Chest x-ray:
IMPRESSION:
Small focus of linear atelectasis within the lateral left lower lung.
Prior GI Procedures:
EGD: Never
Colonoscopy: 01/12/2022 ([facility]): - One 1 mm polyp in the sigmoid colon, removed with a
cold biopsy forceps. Resected and retrieved.
- The examination was otherwise normal.
- Biopsies were taken with a cold forceps from the
ascending colon, transverse colon, descending colon,
sigmoid colon and rectum for evaluation of microscopic
colitis. Pathology: Collagenous colitis. Colon polyp sessile serrated polyp.
Colonoscopy 08/29/2021 ([facility])
- One 3 mm polyp in the sigmoid colon, removed with a
cold snare. Resected and retrieved.
- The examination was otherwise normal. Pathology hyperplastic polyp.
Colonoscopy 11/15/2009: The entire examined portion of the colon appeared normal.
Assessment / Plan
-
64-year-old male with past medical history of hypertension, questionable COPD after having COVID and collagenous colitis currently quiescent who presents to the emergency room with 4-day history of fevers, chills, myalgias, nausea, vomiting and
diarrhea. We are asked to evaluate for ileitis.Patient with acute onset of fevers up to 103.4, chills, myalgias and arthralgias associated with nausea, vomiting and diarrhea starting on Sunday. Patient did have raw oysters on Sunday evening. No
sick contacts, no recent travel. COVID is negative. C. difficile is negative. Stool studies pending. Ova and parasite pending. Norovirus pending. WBC 3.9 down from 6.2, hemoglobin 12.7 down from 14.5, platelets 165 down from 206. Sodium 134,
potassium 4.3, CO2 21, BUN 16, creatinine 1.1, glucose 83, lactic acid 0.7, calcium 9.0, total bilirubin 0.6, AST 76, ALT 19, alk phos 85. CT of the abdomen and pelvis with IV contrast shows mild segmental thickening involving several loops of the
distal ileum as well as the terminal ileum with mild adjacent mesenteric edema. Several loops of distal small bowel are also fluid-filled measuring up to 3.1 cm with moderate amount of fluid within the proximal colon.
Impression:
Enteritis-> with Nausea, Vomiting and Diarrhea, recent ingestion of raw oysters. Concerns for vibrio.
Fevers
Myalgias
Tachycardia
Mildly elevated AST
Other Dx:
Hx collagenous colitis, prior quiescent with formed stool daily.
HTN
COPD vs Asthma post COVID
Plan:
-Await stool culture, O&P, Giardia, norovirus.
-Added on Vibrio, will need new specimen to send out.
-Patient was initially on Zosyn and has been changed to Levaquin and Flagyl.
-Trend CBC, CMP in am
-Ok for clear liquid diet
-Further recommendations to be forthcoming
-
-
Thank you for consultation and allowing me to participate in the patient's care. Please call the production checker GI physician during the after hours with any questions or concerns.
--- NOTE | 2024-06-06 11:56 | W.PN.UPDATE ---
Update Note
Progress Note Update
I personally performed a history and physical exam of the patient and discussed management with the resident. I reviewed the resident's seperately documented note and agree with the documented findings and plan of care HPI/CC with the following
exceptions/corrections:
CC:fever
HPI: Mr Hardin is a 64 year old male with history of collagenous colitis (quiescent), treated hep C (90s, first interferon, then interferon with ribaviron, with SVR, no known cirrhosis) who presented to today for four days of fever, chill,
nausea, vomiting, diarrhea and myalgias. No known history of liver disease, does drink 2-3 cocktails per week, no known immunosuppression. Of note the day prior to onset he had 2 raw oysters, other family members also ate the raw oysters none are
sick. The next dayhe had malaise, feverish and myalgias which progressed through the day to severe abdominal pain. He progressed to nausea, vomiting, profuse diarrhea, T of 103.4. Saw PCP and given script for zofran and referred to the ER but he
decided to stay home. Progressed with headache. Self administered imodium with worsening symptoms. No blood in the stool. No sick contacts or recent travel. Vomiting resolved. He presented here.
Since arrival here he has been afebrile, bp stable wbc initially 6.2 now 3.9, hgb 14.5, plt 206, no L shift, there was mild lymphopenia, cr 1.1, na 134, lactic acid 0.7, t bili 0.6, ast 76, alt 19, alk phos 85, ua no pyuria but 3+ ketones, covid ag
neg, 06/05 CT a/p with IV contrast: terminal ileitis, 06/05 CXR: atelectasis, stool for c diff giardia/crypto negatie, stool salmonella, campy, shiga toxin pending, was on zosyn I have recommended a switch to levaquin and metronidazole, ID is
consulted for assistance with management.
Past Medical History
Past Medical History: COPD, HTN and Other (Collagenous colitis)
Past Surgical History: Orthopedic (Bilateral rotator cuff, right elbow surgery, laminectomy, neck surgery) and Other (Inguinal hernia repair)
Social History
Tobacco: Non-Smoker
Alcohol: Occasional ('2-3 cocktails a week')
Drug: None
Family History
Family History: No family history of gastrointestinal malignancy or IBD
Allergies / Home Medications
Allergy/AdvReac Type Severity Reaction Status Date / Time
No Known Drug Allergies Allergy - Verified 12/08/23 17:03
cats Allergy stuffy Uncoded 12/08/23 17:03
nose and
watery eyes
hayfever, dust, pollen Allergy stuffy Uncoded 12/08/23 17:03
nose and
watery eyes
�Medication �Instructions �Recorded
Multivitamin 1 tab PO DAILY 11/24/13
ibuprofen 200 mg capsule (Advil 400 mg PO Q6H PRN lower back pain 11/24/13
Liqui-Gel)
aspirin 81 mg tablet 81 mg PO DAILY 06/06/24
fluticasone furoate 200 1 ea inhalation DAILY 06/06/24
mcg-vilanterol 25 mcg/dose
inhalation powder (Breo Ellipta)
valsartan PO DAILY 06/06/24
All other systems: A 12 pt ROS was Negative except as stated above in HPI
Vital Signs
Vital Signs
Temp Pulse Resp BP Pulse Ox
98.7 F 97 24 148/96 96
06/06/24 00:05 06/06/24 01:15 06/06/24 01:15 06/06/24 01:00 06/06/24 01:15
Physical Exam
General: Nontoxic
HEENT:Moist mucous membranes
Respiratory: Clear to auscultation BL, no rales or wheezes
Cardiac: S1/S2 and Regular Rhythm; No Murmur or Rub
GI: Soft, mildly diffusely tender, Non Distended and Normal Bowel Sounds
Skin: No Rashes
A&P
64 year old presenting with ileitis/gastroenteritis- in the setting of raw oyster consumption. Patient - not known to have liver disease, immunosuppression
Ileitis/gastroenteritis
H/o Collagenous colitis.
- agree with selective media stool culture for vibrio as sent per GI; biofire PCR panel may have greater yield and also includes yersinia - I have sent that as well
- Salmonella/Campylobacter culture in progress, C difficile negative; TB low on the differential would typically be a chronic rather than acute presentation
- agree with switch to levofloxacin at present dose and metronidazole
- follow clinically
--- NOTE | 2024-06-06 12:28 | CON.ID ---
Addendum entered and electronically signed by Park Douglas MD 06/07/24 08:31:
I personally performed a history and physical exam of the patient and discussed management with the resident. I reviewed the resident's separately documented note and agree with the documented findings and plan of care HPI/CC with the
exceptions/corrections listed in my separately documented note
Original Note:
Documented by User: Tran Khoury MD, Resident 06/06/24 16:44
Consultation
-
Date/Time Consultation Requested: 06/06/2024 11:31
Requesting Provider: Sarah Kellogg MD
Performing Provider: Park Douglas MD
Chief Complaint / Past History
Chief Complaint
Fever, N/V, diarrhea
History of Present Illness
64 year old male with remote hx of Hep C (cleared) who presented to the ED on 06/05 with fever/chills, generalized aches, nausea, vomiting, frequent loose non-bloody stools and headache x 2 days. He was seen by his PCP one day after onset of
symptoms, recorded high fever of 103.4F. He also vomited 3 times at his PCP's office. He was treated with Tylenol and Zofran. He also treated his loose stools with Imodium which he states helped. Of note, he recalls having raw oysters at a
restaurant with his family one day before onset of his symptoms. He reports poor appetite with reduced PO intake but denied recent travel antibiotic use or sick contacts.
Upon arrival to the ED, he was afebrile, tachycardic with otherwise stable vitals, wbc 6.2, hgb 14.5, platelets 206, Na 133, BUN 15, cr 1.2, AST 77.
CXR 06/05: Small focus of linear atelectasis within the lateral left lower lung.
CT abd/pel 06/05: Mild thickening of several distal small bowel loops including the terminal ileum with mild to moderate fluid distention of the distal small bowel as well as the proximal colon. Mild mesenteric stranding also noted. Findings
suggestive of a non-specific enteritis, likely infectious or inflammatory in nature. The appendix is also secondarily filled with fluid measuring 11 mm. No periappendiceal inflammatory change
He was started on empiric Zosyn, placed on a clear liquid diet, IVFs, and antiemetics
Past History
Past Medical History: COPD, HTN and Other (Hep C (cleared))
Past Surgical History: Orthopedic (Bilateral rotator cuff repair, laminectomy, ) and Other (Inguinal hernia repair)
Allergy History:
No Known Drug Allergies Allergy (Verified 12/08/23 17:03)
-
cats Allergy (Uncoded 12/08/23 17:03)
stuffy nose and watery eyes
hayfever, dust, pollen Allergy (Uncoded 12/08/23 17:03)
stuffy nose and watery eyes
Medications Reviewed: Yes
Social History
Tobacco: Former Smoker
Personal:
Living: With Family
Family History
Family History: Not Pertinent
Review of Systems
Review of Systems
General: Fever and Other (poor appetite)
Gasteroenterology: Other (mild abdominal ache/discomfort)
Genital / Urological: Negative Dysuria
Musculoskeletal: Myalgias
Neurological: Headache
Vital Signs
Temp Pulse Resp BP Pulse Ox
98.5 F 105 18 146/98 93
06/06/24 11:15 06/06/24 11:15 06/06/24 11:15 06/06/24 11:15 06/06/24 11:15
Physical Exam
Physical Exam
Constitutional: No Acute Distress and Comfortable
Lymph Nodes: Negative Lymphadenopathy
Cardiovascular: Regular Rate and S1/S2; Negative Murmur, Rub or Peripheral Edema
Pulmonary: Clear and Non Labored; Negative Wheezes, Rales or Rhonchi
Gastrointestinal: Soft, Tender (mild generalized tenderness), Non Distended, Normal Bowel Sounds, No Rebound and No Guarding
Genito-Urinary: Negative Suprapubic Tenderness or CVA Tenderness
Extremities: Negative Edema, Clubbing or Cyanosis
Musculoskeletal: Negative Joint Swelling
Skin: Warm and Dry
Neurological: Awake, Alert and Other (responds appropriately)
Psychological: Calm
Lines: PIV
Lab / Diagnostic Study Results
06/06/24 09:01
06/06/24 09:01
Abs Immat Gran (auto) 0.0 10^3/uL (0-0.05) 06/05/24 18:12
Absolute Neuts (auto) 4.6 10^3/uL (1.4-6.5) 06/05/24 18:12
Absolute Lymphs (auto) 0.9 10^3/uL (1.2-3.4) L 06/05/24 18:12
Absolute Monos (auto) 0.6 10^3/uL (0.1-0.6) 06/05/24 18:12
Absolute Basos (auto) 0.0 10^3/uL (0-0.2) 06/05/24 18:12
Immature Gran % 0.2 % (0-0.5) 06/05/24 18:12
Neutrophils % 74.7 % (42.2-75.2) 06/05/24 18:12
Lymphocytes % 15.2 % (20.5-51.1) L 06/05/24 18:12
Monocytes % 9.2 % (1.7-9.3) 06/05/24 18:12
Eosinophils % 0.2 % (0-6) 06/05/24 18:12
Basophils % 0.5 % (0-2) 06/05/24 18:12
Lactic Acid Cancelled 06/06/24 15:08
Microbiology Results
Micro:
06/06/24 08:30 Cryptosporidium/Giardia - Final
Feces/Stool Negative for Cryptosporidium and/or Giardia Lamblia
antigens.
C. difficile GDH Antigen & Toxins - Final
Negative for toxigenic C.difficile
- Pending
06/06/24 08:30 Salmonella/Shigella Culture - Pending
Feces/Stool Campylobacter Culture - Pending
Shiga Toxin Test - Pending
06/05/24 18:12 Influenza Types A & B ([facility]) - Final
Nasal Swab Negative for Influenza A & B, NAAT
Negative results must be combined with clinical observations
and patient history.
Nucleic Acid Amplification test (NAAT)performed on the
ReactX platform.
Assessment / Plan
Sepsis 2/2 acute terminal ileitis
Remote hx of Hep C - cleared
H/o Collagenous colitis
- CXR 06/05: Small focus of linear atelectasis within the lateral left lower lung
- CT abd/pel 06/05: Mild thickening of several distal small bowel loops including the terminal ileum with mild to moderate fluid distention of the distal small bowel as well as the proximal colon. Mild mesenteric stranding also noted. Findings
suggestive of a non-specific enteritis, likely infectious or inflammatory in nature. The appendix is also secondarily filled with fluid measuring 11 mm. No periappendiceal inflammatory changes
- Stool is negative for Cryptosporidium and/or Giardia Lamblia antigens.
- Negative for toxigenic C.difficile
- Norovirus negative
- Flu A/B negative
- Covid negative
- Discontinued Zosyn
- Will await selective media stool culture for vibrio and biofire PCR panel (includes yersinia)
- Currently on Levofloxacin, continue
- Metronidazole added
-Follow clinically

Documented by User: Park Douglas MD 06/07/24 08:30
Consultation
-
Date/Time Consultation Performed: 06/06/24 11:56
Reason for Consultation: suspected vibrio infection
[2024-06-06] MEDS: LEVAQUIN 100 IV (12:48)
--- NOTE | 2024-06-06 12:48 | CM ---
community service manager reviewed patient's chart and met with patient and patient lives with spouse in a split level home, patient is independent with adl's and ambulation, no dme, patient drives.
PCP: Dr Clay
Pharmacy: [facility]
Plan; Home with spouse when stable, no needs.
[2024-06-06] MEDS: ZOFRAN 4 MG IV ×2 (15:05→21:22)
[2024-06-06] MEDS: FLAGYL 500 MG PO ×2 (16:11→23:15)
[2024-06-06] MEDS: SYMBICORT 160/4.5 MCG INHALER 2 PUFF INH (20:59)
[2024-06-07] MEDS: NSS 1000 IV (02:12)
[2024-06-07] MEDS: TYLENOL 650 MG PO (02:19)
[2024-06-07 03:32] VITALS: BP 154/99
[2024-06-07 04:54] VITALS: BMI 26.9
[2024-06-07 07:00] VITALS: BP 146/93
[2024-06-07 07:26] LABS: Hematocrit 34.3 % (39.0-52.0); Hemoglobin 12.1 g/dL (13.0-18.0); Mean Corp Hgb Conc. 35.3 g/dL (33.0-37.0); Mean Corpuscular Hgb 31.1 pg (27.0-31.0); Mean Corpuscular Volume 88.2 fL (80.0-94.0); Mean Platelet Volume 9.7 fL (7.4-10.4); Platelet Count 180 10^3/uL (130-400); Red Blood Cell Count 3.89 10^6/uL (4.70-6.10); Red Cell Dist. Width 12.7 % (11.5-14.5); White Blood Cell Count 4.1 10^3/uL (4.8-10.8)
[2024-06-07] MEDS: SYMBICORT 160/4.5 MCG INHALER 2 PUFF INH (08:20)
[2024-06-07] MEDS: FLAGYL 500 MG PO (08:39)
[2024-06-07 08:42] LABS: ALT (SGPT) 21 U/L (0-50); AST (SGOT) 93 U/L (17-59); Albumin 3.6 g/dl (3.5-5.0); Alkaline Phosphatase 87 U/L (38-126); Blood Urea Nitrogen 10 mg/dl (9-20); Calcium 9.1 mg/dl (8.4-10.2); Carbon Dioxide 20 mmol/L (22-30); Chloride 104 mmol/L (98-107); Estimated Creatinine Clearance 84 ml/min; Glucose 89 mg/dl (70-99); Potassium 3.6 mmol/L (3.5-5.1); Sodium 135 mmol/L (135-145); Total Bilirubin 0.5 mg/dl (0.2-1.3); Total Protein 6.8 g/dl (6.3-8.2); eGFR > 60.00
--- NOTE | 2024-06-07 09:36 | W.PN.GI.CBS2 ---
Addendum entered and electronically signed by Martina Poe MD 06/07/24 10:30:
I saw and examined the patient.
The IMPRESSION PRINTER's note was reviewed and I agree with the note.
Continues to have watery diarrhea overnight. No blood with stool . No fever. C. difficile was negative
plan
Adequate hydration
Follow-up stool studies
Continue antibiotics as per ID
Lactose-free low fat diet
Original Note:
Today's Communication / Plan
-
Await stool studies
Advance diet
Assessment / Plan
-
64-year-old male with past medical history of hypertension, questionable COPD after having COVID and collagenous colitis currently quiescent who presents to the emergency room with 4-day history of fevers, chills, myalgias, nausea, vomiting and
diarrhea. We are asked to evaluate for ileitis.Patient with acute onset of fevers up to 103.4, chills, myalgias and arthralgias associated with nausea, vomiting and diarrhea starting on Sunday. Patient did have raw oysters on Sunday evening. No
sick contacts, no recent travel. COVID is negative. C. difficile is negative. Stool studies pending. Ova and parasite pending. Norovirus pending. WBC 3.9 down from 6.2, hemoglobin 12.7 down from 14.5, platelets 165 down from 206. Sodium 134,
potassium 4.3, CO2 21, BUN 16, creatinine 1.1, glucose 83, lactic acid 0.7, calcium 9.0, total bilirubin 0.6, AST 76, ALT 19, alk phos 85. CT of the abdomen and pelvis with IV contrast shows mild segmental thickening involving several loops of the
distal ileum as well as the terminal ileum with mild adjacent mesenteric edema. Several loops of distal small bowel are also fluid-filled measuring up to 3.1 cm with moderate amount of fluid within the proximal colon.
Impression:
Enteritis-> with Nausea, Vomiting and Diarrhea, recent ingestion of raw oysters. Concerns for vibrio.
Fevers -> improving
Myalgias
Tachycardia
Mildly elevated AST-> increased today.
Other Dx:
Hx collagenous colitis, prior quiescent with formed stool daily.
HTN
COPD vs Asthma post COVID
Plan:
-Await stool culture, O&P, Giardia, vibrio, yersinia
-Continue Levaquin and Flagyl as per ID recommendations
-Trend LFTs
-Advance diet to low residue/low lactose as tolerated
Subjective
Subjective
Date of Service: June 07, 2024
Patient with 'a dozen brown liquid bowel movements within the past 24 hours' no further nausea or vomiting. Tolerating a clear liquid diet. Decreased abdominal distention. No further abdominal pain. States that he is feeling better than
yesterday. Fevers improved. Stool negative for C. difficile and norovirus. Stool cultures pending, stool for vibrio pending, stool for Wendie pending. Patient does state that his stools were initially a little thicker yesterday but then became
watery again. WBC 4.1, hemoglobin 12.1, hematocrit 34.3, platelets 180, sodium 135, potassium 3.6, chloride 104, CO2 20, BUN 10, creatinine 0.9, total bilirubin 0.5, AST 93 (increased) from 76, ALT 21, alk phos 87.
Objective
Data Reviewed
Laboratory Data:
Laboratory Results
06/07/24 06:22
06/07/24 06:22
Laboratory Results
Total Bilirubin 0.5 mg/dl (0.2-1.3) 06/07/24 06:22
AST 93 U/L (17-59) H 06/07/24 06:22
ALT 21 U/L (0-50) 06/07/24 06:22
Alkaline Phosphatase 87 U/L (38-126) 06/07/24 06:22
Vital Signs and I&O:
Vital Signs
Temp Pulse Resp BP Pulse Ox
98.3 F 106 16 146/93 98
06/07/24 07:00 06/07/24 08:24 06/07/24 08:24 06/07/24 07:00 06/07/24 08:24
I&O
06/06/24 06/07/24 06/08/24
06:59 06:59 06:59
Intake Total 290 / 290 2640 / 2640
Balance 290 / 290 2640 / 2640
Physical Exam
Physical Exam
HEENT: Anicteric
Cardiology: Normal Sinus Rhythm
Pulmonary: Clear
GI: Soft, Non Distended, Non Tender and Normal Bowel Sounds
Extremities: No Edema
Neuro: Non Focal
[2024-06-07 11:00] VITALS: BP 140/92
[2024-06-07] MEDS: LEVAQUIN 100 IV (11:31)
--- NOTE | 2024-06-07 11:59 | W.PN.HOSP.TC ---
Today's Communication/Plan
-
dc home
Assessment / Plan
Assessment / Plan
Assessment:
Ileitis
- CT: Mild thickening of several distal small bowel loops including the terminal ileum with mild to moderate fluid distention of the distal small bowel as well as the proximal colon. Mild mesenteric stranding also noted. Findings suggestive of a
non-specific enteritis, likely infectious or inflammatory in nature. The appendix is also secondarily filled with fluid measuring 11 mm. No periappendiceal inflammatory changes.
- patient admits to eating raw oysters
- f/u OP stool studies, norovirus, O&P, and Vibrio
- dc home on Cipro/Flagyl x 10 days and regular diet
- OP PCP or GI f/u
Hyponatremia - improving
hx of Essential HTN
- Valsartan
Hx of Asthma
- on Breo
DVT ppx: SCDs
Code: Full
More than 30 minutes spent in discharge including
Final examination of the patient
Summarizing hospital stay
Instructions for continuing care to all relevant caregivers
Preparation of discharge records, prescriptions, and referral forms
Total time spent (in minutes): 42
Anticipated Discharge: Today
Subjective/Interval History
-
Date of Service: June 07, 2024
feels much improved
denies any complaints
placed on regular diet
Objective Data
-
Labs:
Laboratory Results
06/07/24
06:22
WBC 4.1 L
Hgb 12.1 L
Hct 34.3 L
Plt Count 180
Sodium 135
Potassium 3.6
Chloride 104
Carbon Dioxide 20 L
BUN 10
Creatinine 0.9
Glucose 89
Calcium 9.1
Total Bilirubin 0.5
AST 93 H
ALT 21
Alkaline Phosphatase 87
Vital Signs:
Vital Signs
Temp Pulse Resp BP Pulse Ox
98.3 F 87 18 140/92 94
06/07/24 11:00 06/07/24 11:00 06/07/24 11:00 06/07/24 11:00 06/07/24 11:00
I&O
06/06/24 06/07/24 06/08/24
06:59 06:59 06:59
Intake Total 290 / 290 2640 / 2640
Balance 290 / 290 2640 / 2640
Physical Exam
-
General: No Apparent Distress
HEENT: Normocephalic and Atraumatic
Respiratory: Negative Wheezes
Cardiac: Regular Rhythm and S1/S2
GI: Soft and Nontender
Musculoskeletal: No Edema
Neuro: AO x 3
Hematologic / Lymphatic: No Lymphadenopathy
Psych: Calm
Data Reviewed
-
Total Time Spent with Patient (in minutes): 42
Labs: Labs Reviewed by me
--- NOTE | 2024-06-07 12:06 | W.DS.TRANS ---
DC Summary - Concessions Manager
-
Discharge Instructions:
Discharge Diagnosis/Procedures Ileitis
Diet Low Residue
Activity As tolerated
Bathing Restrictions None
Instructions:
Stand-Alone Forms:
Changes to Home Medications: No
Discharge Medications:
DC Medications w/original date entered in [email or web address]
Multivitamin 1 tab PO DAILY 11/24/13
aspirin 81 mg tablet 81 mg PO DAILY 06/06/24
fluticasone furoate 200 mcg-vilanterol 25 mcg/dose inhalation powder (Breo Ellipta) 1 ea inhalation DAILY 06/06/24
valsartan 40 tab PO DAILY 06/06/24
levofloxacin 500 mg tablet 500 mg PO DAILY #10 tabs 06/07/24
metronidazole 500 mg tablet 500 mg PO BID #20 tabs 06/07/24
Home Medication Changes
Pending Results: No
Total time spent discharging patient (in min): 42
[2024-06-07] MEDS: PREVNAR 20 0.5 ML IM (12:28)
== END 2024-06-07 13:30 | disposition home or self-care (01) | DRG 872 ==
LOC: 4 WEST ACU 02:20
PROVIDERS: Clinical Nurse Specialist Family Health; Emergency Medicine; Nurse Practitioner; ADMITTING PHYSICIAN Internal Medicine; ATTENDING PHYSICIAN Internal Medicine; CONSULT PHYSICIAN Internal Medicine Gastroenterology; CONSULT PHYSICIAN Student in an Organized Health Care Education/Training Program; EMERGENCY PHYSICIAN Emergency Medicine; FAMILY PHYSICIAN Family Medicine
DX: A41.9 Sepsis, unspecified organism (principal); K56.7 Ileus, unspecified; E87.1 Hypo-osmolality and hyponatremia; J98.11 Atelectasis; A09 Infectious gastroenteritis and colitis, unspecified; I10 Essential (primary) hypertension; J45.909 Unspecified asthma, uncomplicated; M54.50 Low back pain, unspecified; R53.81 Other malaise; Z79.51 Long term (current) use of inhaled steroids; Z79.52 Long term (current) use of systemic steroids; Z79.82 Long term (current) use of aspirin; Z79.899 Other long term (current) drug therapy; Z86.16 Personal history of COVID-19; Z87.19 Personal history of other diseases of the digestive system; Z86.010 Personal history of colon polyps; Z86.19 Personal history of other infectious and parasitic diseases; Z87.891 Personal history of nicotine dependence
CPT/HCPCS: 71046; 74177; 80053; 81003; 83605; 85025; 85027; 87045; 87046; 87077; 87184; 87186; 87324; 87328; 87329; 87427; 87449; 87502; 87798; 87811; 90677; 93005; 94640; 96361; 96365; 96375; 99285; G0009; Q9967

== ENCOUNTER → 2024-09-11 15:35 | Outpatient (REF) | payer BC, SELFPAY | LOC: HWRAD 15:35 | PROVIDERS: ATTENDING PHYSICIAN Internal Medicine Critical Care Medicine | DX: R91.8 Other nonspecific abnormal finding of lung field (principal) | CPT/HCPCS: 71250 ==

== ENCOUNTER 2024-10-31 06:22 | Day surgery (SDC) | payer BC, SELFPAY ==
[2024-10-23 12:27] VITALS: BMI 28.4
[2024-10-23 12:27] LABS: Blood Urea Nitrogen 25 mg/dl (9-20); Calcium 9.4 mg/dl (8.4-10.2); Carbon Dioxide 25 mmol/L (22-30); Chloride 103 mmol/L (98-107); Glucose 78 mg/dl (70-99); Potassium 4.7 mmol/L (3.5-5.1); Sodium 138 mmol/L (135-145); eGFR > 60.00
[2024-10-31] VITALS (7 sets, daily range): BP systolic 126–157; BP diastolic 76–95; BMI 28.4
[2024-10-31] MEDS: TYLENOL 1000 MG PO (09:37)
[2024-10-31] MEDS: CELEBREX 200 MG PO (09:37)
[2024-10-31] MEDS: NORMOSOL-R/PLASMALYTE-A 1000 IV (09:37)
== END 2024-10-31 13:35 | disposition home or self-care (01) ==
LOC: SDS 06:22
PROVIDERS: ATTENDING PHYSICIAN Specialist
DX: S46.011A Strain of muscle(s) and tendon(s) of the rotator cuff of right shoulder, initial encounter (principal); X58.XXXA Exposure to other specified factors, initial encounter; Z87.39 Personal history of other diseases of the musculoskeletal system and connective tissue
CPT/HCPCS: 29827; 36415; 80048; 93005; C1713

== ENCOUNTER 2024-12-17 16:11 | Outpatient (RCR) | payer BC, SELFPAY | END 2024-12-17 23:59 | disposition home or self-care (01) | LOC: RPT 16:11 | PROVIDERS: ATTENDING PHYSICIAN Physician Assistant Surgical | DX: Z47.89 Encounter for other orthopedic aftercare (principal); Z73.6 Limitation of activities due to disability; M25.511 Pain in right shoulder; M62.81 Muscle weakness (generalized) | CPT/HCPCS: 97010; 97110; 97140; 97162 ==

== ENCOUNTER → 2025-01-15 06:32 | Outpatient (REF) | payer BC, SELFPAY ==
[2025-01-15 07:45] LABS: % Basophils 0.9 % (0-2); % Eosinophils 5.1 % (0-6); % Immature Granulocytes 0.2 % (0-0.5); % Lymphocytes 36.4 % (20.5-51.1); % Monocytes 8.9 % (1.7-9.3); % Neutrophils 48.5 % (42.2-75.2); Absolute Eosinophils 0.2 10^3/uL (0-0.7); Absolute Lymphocytes 1.6 10^3/uL (1.2-3.4); Absolute Monocytes 0.4 10^3/uL (0.1-0.6); Absolute Neutrophils 2.2 10^3/uL (1.4-6.5); Hematocrit 38.3 % (39.0-52.0); Hemoglobin 13.3 g/dL (13.0-18.0); Mean Corp Hgb Conc. 34.7 g/dL (33.0-37.0); Mean Corpuscular Hgb 32.4 pg (27.0-31.0); Mean Corpuscular Volume 93.4 fL (80.0-94.0); Mean Platelet Volume 9.4 fL (7.4-10.4); Nucleated Red Blood Cells % 0 % (-); Platelet Count 187 10^3/uL (130-400); Red Cell Dist. Width 12.4 % (11.5-14.5); White Blood Cell Count 4.5 10^3/uL (4.8-10.8)
[2025-01-15 08:28] LABS: ALT (SGPT) 22 U/L (0-50); AST (SGOT) 67 U/L (17-59); Albumin 4.1 g/dl (3.5-5.0); Alkaline Phosphatase 97 U/L (38-126); Blood Urea Nitrogen 18 mg/dl (9-20); Calcium 9.6 mg/dl (8.4-10.2); Carbon Dioxide 25 mmol/L (22-30); Chloride 106 mmol/L (98-107); Glucose 89 mg/dl (70-99); HDL Cholesterol 57 mg/dl; LDL Cholesterol, Calculated 100 mg/dl; Potassium 4.8 mmol/L (3.5-5.1); Sodium 140 mmol/L (135-145); Total Bilirubin 0.5 mg/dl (0.2-1.3); Total Cholesterol 169 mg/dl (50-199); Total Protein 7.8 g/dl (6.3-8.2); Triglyceride 64 mg/dl (10-149); Very Low Density Lipoprotein 12 mg/dl (0-30); eGFR > 60.00
[2025-01-15 09:52] LABS: PSA, Total - Screen 0.53 ng/ml (0.0-4.0)
== END ==
LOC: REG 06:32
PROVIDERS: ATTENDING PHYSICIAN Student in an Organized Health Care Education/Training Program
DX: I10 Essential (primary) hypertension (principal); Z23 Encounter for immunization; E78.2 Mixed hyperlipidemia; H34.8120 Central retinal vein occlusion, left eye, with macular edema; Z12.5 Encounter for screening for malignant neoplasm of prostate
CPT/HCPCS: 36415; 80053; 80061; 83036; 84443; 85025; G0103

== ENCOUNTER 2025-01-19 15:58 | Outpatient (RCR) | payer BC, SELFPAY | END 2025-01-19 23:59 | disposition home or self-care (01) | LOC: RPT 15:58 | PROVIDERS: ATTENDING PHYSICIAN Physician Assistant Surgical | DX: Z47.89 Encounter for other orthopedic aftercare (principal); M25.511 Pain in right shoulder; Z73.6 Limitation of activities due to disability; M62.81 Muscle weakness (generalized) | CPT/HCPCS: 97010; 97110; 97140 ==

== ENCOUNTER 2025-02-18 15:56 | Outpatient (RCR) | payer BC, SELFPAY | END 2025-02-18 23:59 | disposition home or self-care (01) | LOC: RPT 15:56 | PROVIDERS: ATTENDING PHYSICIAN Physician Assistant Surgical | DX: Z47.89 Encounter for other orthopedic aftercare (principal); M25.511 Pain in right shoulder; Z73.6 Limitation of activities due to disability; M62.81 Muscle weakness (generalized) | CPT/HCPCS: 97010; 97110 ==

== ENCOUNTER → 2025-03-05 10:04 | Outpatient (REF) | payer BC, SELFPAY ==
[2025-03-05 11:16] LABS: Erythrocyte Sed Rate 61 mm/hour (0-20)
[2025-03-07 02:33] LABS: Beta-2-Glycoprotein I Ab. IgG <10 SGU (<=20); Beta-2-Glycoprotein I Ab. IgM 14 SMU (<=20)
[2025-03-07 05:23] LABS: ANA, IgG Reflex to HEp-2 None Detected (None Detected)
[2025-03-07 10:53] LABS: Cardiolipin IgA Antibody <10 APL (<=11); Cardiolipin IgM Antibody 14 MPL (<=12); Cardiolipin Igg Antibody <10 GPL (<=14)
[2025-03-07 16:20] LABS: Protein S Total Antigen 132 % (84-134)
[2025-03-07 21:18] LABS: Anti-Thrombin III Activity 97 % (76-128)
== END ==
LOC: REG 10:04
PROVIDERS: ATTENDING PHYSICIAN Internal Medicine Hematology & Oncology; FAMILY PHYSICIAN Student in an Organized Health Care Education/Training Program
DX: H34.8192 Central retinal vein occlusion, unspecified eye, stable (principal); D68.69 Other thrombophilia
CPT/HCPCS: 36415; 81240; 81241; 85300; 85305; 85610; 85613; 85652; 85730; 86038; 86146; 86147